=== PATIENT | male | born 1985 | race Caucasian/White ===

== ENCOUNTER → 2017-06-12 | Outpatient (CLI) | payer OTHER ==
--- NOTE | 2017-06-12 15:19 | REP ---
CT IAC WITHOUT CONTRAST: HISTORY: Left ear swelling. The right internal auditory canal, cochlea , vestibule and semicircular canals are normal in appearance. The ossicles are normal in configuration and position. The scutum is intact. There are areas of dehiscence in the tegmen. The middle ear cavity and mastoid air cells are clear. The patient is status post partial left mastoidectomy. Soft tissue density is present at the margins of the mastoidectomy site , in the external auditory canal and hypotympanum. This most likely represents granulation tissue. The internal auditory canal, cochlea, vestibule and semicircular canals are normal in appearance. The ossicles are normal in configuration and position. The scutum and tegmen are intact. There is almost complete opacification of the residual left mastoid air cells. Minimal mucosal thickening is present in the visualized ethmoid, maxillary and sphenoid sinuses. The nasopharynx is normal in appearance. IMPRESSION: The patient is status post partial left mastoidectomy. Soft tissue density is present at the mastoidectomy site , in the external auditory canal and hypotympanum. This most likely represent granulation tissue. Signed by Israel Washburn MD 06/12/2017 03:34 P
== END ==
LOC: M RAD 12:59
PROVIDERS: ATTEND Physician Assistant
DX: H93.8X2 Other specified disorders of left ear (principal); Z98.890 Other specified postprocedural states